=== PATIENT | male | born 1970 | race Caucasian/White ===

== ENCOUNTER 2020-02-10 19:58 | Inpatient (IN) | payer OTHER ==
[~2020-02-10] VITALS: Ht 175.3 cm; Wt 95.3 kg
[2020-02-10] MEDS ORDERED: IV NS 0.9% 1,000 ML BAG IV ONE (20:30)
--- NOTE | 2020-02-10 20:35 | NUR ---
PATIENT CAME TO ER BED 3 C/O RAPID HEART RATE/ PALPITATIONS 1x HOUR TREE PLANTER. PATIENT DENIES ANY PAIN. PATIENT STATES HE FEELS ANXIOUS.S AAOX4. NO SOB. BREATHING EVENLY AND UNLABORED ON ROOM AIR CONNECTED TO MONITOR.
--- NOTE | 2020-02-10 20:41 | NUR ---
XRAY AT BEDSIDE
[2020-02-10 20:46] LABS: BASOPHILS # (AUTO) 0.1 /CMM (0.0-0.2); BASOPHILS % (AUTO) 0.6 % (0.0-2.0); EOSINOPHILS % (AUTO) 1.3 % (0.0-6.0); HEMATOCRIT 45 % (39-51); HEMOGLOBIN 15.5 g/dL (13.5-17.5); LYMPHOCYTES # (AUTO) 4.4 /CMM (0.8-4.8); LYMPHOCYTES % (AUTO) 43.9 % (20.0-44.0); MEAN CORPUSCULAR HGB CONC 34 g/dl (31.0-36.0); MEAN CORPUSCULAR VOLUME 99 fL (80-96); MONOCYTES # (AUTO) 0.7 /CMM (0.1-1.30); MONOCYTES % (AUTO) 6.8 % (2.0-12.0); NEUTROPHILS # (AUTO) 4.7 /CMM (1.8-8.9); NEUTROPHILS % (AUTO) 47.4 % (43.0-81.0); PLATELET COUNT (AUTO) 224 /CMM (150-450); RED BLOOD CELL COUNT(AUTO) 4.56 MIL/uL (4.5-6.0); WHITE BLOOD COUNT (AUTO) 9.9 K/uL (4.3-11.0)
--- NOTE | 2020-02-10 20:47 | NUR ---
BLOOD DRAWN AND SENT TO LAB
[2020-02-10 20:55] LABS: CALCIUM, SERUM 9.2 mg/dL (8.5-10.1); CARBON DIOXIDE 27 mmol/L (21-32); CHLORIDE 105 mmol/L (98-107); GLUCOSE 94 mg/dL (74-106); POTASSIUM 3.9 mmol/L (3.5-5.1); SODIUM SERUM 141 mmol/L (136-145); UREA NITROGEN, BLOOD 17 mg/dL (7-18)
--- NOTE | 2020-02-10 21:10 | NUR ---
CALLED FOR TELE BED
--- NOTE | 2020-02-10 21:27 | NUR ---
RECIEVED BED [phone]
[2020-02-10] MEDS ORDERED: ASPIRIN 325 MG TABLET PO ONE (21:30)
[2020-02-10] MEDS ORDERED: ASPIRIN 325 MG TABLET ONE (21:53)
[2020-02-10] MEDS ORDERED: ACETAMINOPHEN 325 MG TABLET PO PRN (22:30)
[2020-02-10] MEDS ORDERED: Z GUARD REMEDY 2 OZ OINT TP PRN (22:30)
[2020-02-10] MEDS ORDERED: MAG HYDROX/AL HYDROX/SIMETH 30 ML UDC PO PRN (22:30)
[2020-02-10] MEDS ORDERED: ONDANSETRON HCL/PF 4 MG/2 ML VIAL IVP PRN (22:30)
[2020-02-10] MEDS ORDERED: MAGNESIUM HYDROXIDE 30 ML UDC PO PRN (22:30)
[2020-02-10] MEDS ORDERED: HYDROCODONE/APAP 5/325MG 1 EACH TABLET PO PRN (22:30)
--- NOTE | 2020-02-10 22:42 | NUR ---
REPORT GIVEN TO IMANI ROBERTS FOR FRANCIS.
[2020-02-10 23:00] VITALS: BP 125/71
--- NOTE | 2020-02-10 23:00 | NUR ---
JET HANDLER NOTES PATIENT ARRIVED TO THE UNIT VIA ACLS PROTOCOL. PATIENT ALERT AND ORIENTED X 4. ON ROOM AIR, NO SIGNS OF RESPIRATORY DISTRESS PRESENT, NO SIGNS OF SOB, AND WITH EVEN NON-LABORED BREATHING. ON ICING MIXER, NORMAL SINUS RHYTHM, 60'S, NO COMPLAINTS OF CHEST PAIN OR DISCOMFORT. PATIENT SKIN DRY, WARM AND DRY. IV ACCESS ON RIGHT AC, 20 GAUGE. SAFETY PRECAUTIONS IMPLEMENTED, BED LOCKED, BED ALARM ON, BILATERAL SIDE RAILS UP, SEMI FOWLERS POSITION, AND CALL LIGHT WITHIN EASY REACH. WILL CONTINUE TO MONITOR PATIENT.
[2020-02-10] MEDS ORDERED: ATOR10TA PO (23:02)
[2020-02-10] MEDS ORDERED: MELO-107 PO (23:03)
[2020-02-10] MEDS: METOPROLOL TARTRATE 25 MG TABLET PO SCH (23:46)
[2020-02-11] VITALS: BP 125/75
[2020-02-11 00:31] VITALS: BP 125/75
[2020-02-11 04:32] VITALS: BP 101/56
[2020-02-11 06:12] LABS: BASOPHILS % (AUTO) 0.7 % (0.0-2.0); HEMATOCRIT 40 % (39-51); HEMOGLOBIN 13.8 g/dL (13.5-17.5); LYMPHOCYTES # (AUTO) 3.2 /CMM (0.8-4.8); LYMPHOCYTES % (AUTO) 45.6 % (20.0-44.0); MEAN CORPUSCULAR HGB CONC 34 g/dl (31.0-36.0); MEAN CORPUSCULAR VOLUME 98 fL (80-96); MONOCYTES # (AUTO) 0.5 /CMM (0.1-1.30); MONOCYTES % (AUTO) 6.8 % (2.0-12.0); NEUTROPHILS # (AUTO) 3.2 /CMM (1.8-8.9); NEUTROPHILS % (AUTO) 44.9 % (43.0-81.0); PLATELET COUNT (AUTO) 193 /CMM (150-450); RED BLOOD CELL COUNT(AUTO) 4.09 MIL/uL (4.5-6.0); WHITE BLOOD COUNT (AUTO) 7.1 K/uL (4.3-11.0)
[2020-02-11 06:39] LABS: CALCIUM, SERUM 8.5 mg/dL (8.5-10.1); MAGNESIUM 2.1 mg/dL (1.8-2.4); POTASSIUM 4.2 mmol/L (3.5-5.1)
--- NOTE | 2020-02-11 06:42 | NUR ---
WALL CRANE OPERATOR NOTES PATIENT IN BED SLEEPING. ALERT AND ORIENTED X 4, EASILY AWAKEN BY NAME. PATIENT ON ROOM AIR, NO SIGNS OF SOB, NO RESPIRATORY DISTRESS PRESENT, AND WITH EVEN NON-LABORED BREATHING. ON INDUSTRIAL DESIGNER, SINUS BRADYCARDIA IN 50-60'S. PATIENT IV ACCESS INTACT AND PATENT. SKIN KEPT CLEAN AND DRY. PROVIDED COMFORT MEASURES TO PATIENT AND MET ALL PATIENT NEEDS. SAFETY PRECAUTIONS IN PLACE WITH BED LOCKED, BED IN THE LOWEST POSITION, BILATERAL SIDE RAILS UP, BED ALARM ON, SEMI-FOWLERS POSITION, AND CALL LIGHT WITHIN EASY REACH OF PATIENT. WILL ENDORSE FRANCIS TO UPCOMING DAYSHIFT NURSE.
--- NOTE | 2020-02-11 07:30 | NUR ---
Tele/RN Opening note Received patient in bed, AO x 4, able to responds all stimuli. Denies pain or discomfort, skin is warm to touch clean/dry, intact IV site. Respiratory even/unlabored with room air. Kept lower position of bed with elevated HOB. Call light within reach, will continue to monitor.
[2020-02-11] MEDS ORDERED: METO25TA20 PO ×2 (08:05→08:06)
[2020-02-11 08:38] VITALS: BP 117/56
[2020-02-11] MEDS: METOPROLOL TARTRATE 25 MG TABLET PO SCH (08:38)
--- NOTE | 2020-02-11 11:00 | NUR ---
Given discharge instruction include pickup new prescription medication side effect, follow up PCP, cardiology and continue medications after discharge and pt verbally understanding. Denies pain or discomfort, in stable condition.
== END 2020-02-11 11:00 | disposition home or self-care (01) | DRG 310 ==
LOC: ER 20:03 → TELE 22:19 → MED 02-11 09:08
PROVIDERS: ADMIT Internal Medicine; ATTEND Family Medicine
DX: I48.91 Unspecified atrial fibrillation (principal); E78.5 Hyperlipidemia, unspecified; F17.210 Nicotine dependence, cigarettes, uncomplicated
CPT/HCPCS: 36415; 71045-TC; 80048-TC; 80061-TC; 83735-TC; 84100-TC; 84443-TC; 84484-TC; 85025-TC; 87081-TC; G0378

== ENCOUNTER 2020-04-27 12:51 | Emergency (ER) | payer OTHER ==
[~2020-04-27] VITALS: Ht 175.3 cm; Wt 87.1 kg
[~2020-04-27 12:51] MED LIST: ATOR10TA PO; MELO-107 PO; METO25TA20 PO
--- NOTE | 2020-04-27 12:52 | NUR ---
PT BIB SELF C/O PALPITATIONS EPISODE STARTED 2AM TODAY. DENIES CHEST PAIN, PT IS AAOX4, NOT IN RESPIRATORY DISTRESS, HOOKED TO CORE COMPOSER MACHINE TENDER, KEPT RESTED AND COMFORTABLE, WILL CONTINUE TO MONITOR.
--- NOTE | 2020-04-27 13:01 | NUR ---
PT SEEN AND EXAMINED BY .
--- NOTE | 2020-04-27 13:05 | NUR ---
TANIA CAMPBELL AT BEDSIDE FOR EKG.
--- NOTE | 2020-04-27 13:15 | NUR ---
IV LINE ESTABLISHED BLOOD DRAWN AND SENT TO LAB.
[2020-04-27 13:22] LABS: BASOPHILS # (AUTO) 0.1 /CMM (0.0-0.2); BASOPHILS % (AUTO) 0.6 % (0.0-2.0); HEMATOCRIT 41 % (39-51); HEMOGLOBIN 14.4 g/dL (13.5-17.5); LYMPHOCYTES # (AUTO) 2.8 /CMM (0.8-4.8); LYMPHOCYTES % (AUTO) 33.4 % (20.0-44.0); MEAN CORPUSCULAR HGB CONC 35 g/dl (31.0-36.0); MEAN CORPUSCULAR VOLUME 100 fL (80-96); MONOCYTES # (AUTO) 0.4 /CMM (0.1-1.30); MONOCYTES % (AUTO) 4.5 % (2.0-12.0); NEUTROPHILS # (AUTO) 5.1 /CMM (1.8-8.9); NEUTROPHILS % (AUTO) 60.5 % (43.0-81.0); PLATELET COUNT (AUTO) 193 /CMM (150-450); RED BLOOD CELL COUNT(AUTO) 4.13 MIL/uL (4.5-6.0); WHITE BLOOD COUNT (AUTO) 8.5 K/uL (4.3-11.0)
[2020-04-27 13:30] LABS: CARBON DIOXIDE 28 mmol/L (21-32); CHLORIDE 105 mmol/L (98-107); CREATININE 0.9 mg/dL (0.6-1.3); GLUCOSE 82 mg/dL (74-106); POTASSIUM 3.8 mmol/L (3.5-5.1); SODIUM SERUM 142 mmol/L (136-145); UREA NITROGEN, BLOOD 10 mg/dL (7-18)
[2020-04-27 13:37] LABS: ALANINE AMINOTRANSFERASE 81 U/L (12-78); ALKALINE PHOSPHATASE 93 U/L (46-116); ASPARTATE AMINOTRANSFERASE 25 U/L (15-37); BILIRUBIN,DIRECT 0.2 mg/dL (0.0-0.2); BILIRUBIN,TOTAL 0.7 mg/dL (0.2-1.0); TOTAL PROTEIN, SERUM 7.2 g/dL (6.4-8.2)
--- NOTE | 2020-04-27 14:14 | NUR ---
IV removed. Catheter intact and site benign. Pressure and 4x4 applied to site. No bleeding noted. Patient discharged to home in stable condition. Written and verbal after care instructions given. Patient verbalizes understanding of instruction.
[2020-04-27 14:15] VITALS: BP 107/72
== END 2020-04-27 14:18 | disposition home or self-care (01) ==
LOC: ER 12:54
DX: I48.0 Paroxysmal atrial fibrillation (principal); R00.2 Palpitations; I10 Essential (primary) hypertension; Z79.899 Other long term (current) drug therapy
CPT/HCPCS: 36415; 71045-TC; 80048-TC; 80076-TC; 84484-TC; 85025-TC; 85730-TC

== ENCOUNTER 2021-01-30 01:41 | Emergency (ER) | payer OTHER ==
[~2021-01-30] VITALS: Ht 175.3 cm; Wt 95.3 kg
--- NOTE | 2021-01-30 02:09 | NUR ---
PATIENT CAME TO THE ER BED 10 C/O LEFT SIDED "ZING" SENSATION SINCE 30 OF TODAY. PATIENT STATES THAT HE HAS A HISTORY OF ATRIAL FIBRILLATION. PATIENT IS CURRENTLY TAKING ASPIRIN AND METOPROLOL. PATIENT IS AAOX4. NO SOB. BREATHING EVENLY AND UNLABORED ON ROOM AIR. CONNECTED TO THE PRECISION MILLWRIGHT.
[2021-01-30 02:10] LABS: BASOPHILS # (AUTO) 0.1 /CMM (0.0-0.2); BASOPHILS % (AUTO) 1.1 % (0.0-2.0); EOSINOPHILS % (AUTO) 2.2 % (0.0-6.0); HEMATOCRIT 42 % (39-51); LYMPHOCYTES # (AUTO) 3.9 /CMM (0.8-4.8); LYMPHOCYTES % (AUTO) 49.4 % (20.0-44.0); MEAN CORPUSCULAR HGB CONC 35 g/dl (31.0-36.0); MEAN CORPUSCULAR VOLUME 99 fL (80-96); MONOCYTES # (AUTO) 0.6 /CMM (0.1-1.30); MONOCYTES % (AUTO) 8.1 % (2.0-12.0); NEUTROPHILS # (AUTO) 3.1 /CMM (1.8-8.9); NEUTROPHILS % (AUTO) 39.2 % (43.0-81.0); PLATELET COUNT (AUTO) 186 /CMM (150-450); RED BLOOD CELL COUNT(AUTO) 4.29 MIL/uL (4.5-6.0); WHITE BLOOD COUNT (AUTO) 7.9 K/uL (4.3-11.0)
--- NOTE | 2021-01-30 02:10 | NUR ---
ALSO TAKES FLECAINIDE ACETATE FOR HIS AFIB
[2021-01-30 02:26] LABS: CALCIUM, SERUM 8.6 mg/dL (8.5-10.1); CARBON DIOXIDE 27 mmol/L (21-32); CHLORIDE 105 mmol/L (98-107); GLUCOSE 111 mg/dL (74-106); POTASSIUM 3.5 mmol/L (3.5-5.1); SODIUM SERUM 142 mmol/L (136-145); UREA NITROGEN, BLOOD 16 mg/dL (7-18)
[2021-01-30 06:20] VITALS: BP 126/74
--- NOTE | 2021-01-30 06:20 | NUR ---
Patient discharged to home in stable condition. Written and verbal after care instructions given. Patient verbalizes understanding of instruction.
--- NOTE | 2021-01-30 06:20 | NUR ---
IV removed. Catheter intact and site benign. Pressure and 4x4 applied to site. No bleeding noted.
== END 2021-01-30 06:20 | disposition home or self-care (01) ==
LOC: ER 01:44
DX: R07.89 Other chest pain (principal); I10 Essential (primary) hypertension; I48.91 Unspecified atrial fibrillation; E78.5 Hyperlipidemia, unspecified; F17.200 Nicotine dependence, unspecified, uncomplicated; Z79.899 Other long term (current) drug therapy
CPT/HCPCS: 36415; 71045-TC; 80048-TC; 84484-TC; 85025-TC